=== PATIENT | female | born 1995 | race African-American/Black ===

== ENCOUNTER 2017-01-23 19:12 | Emergency (ER) | payer MEDICAID ==
[~2017-01-23] VITALS: Ht 180.3 cm; Wt 86.0 kg
[2017-01-23 22:38] VITALS: BP 132/78
[2017-01-23 22:47] LABS: CLARITY URINE TURBID (CLEAR); COLOR URINE YELLOW (YELLOW); GLUCOSE URINE NEGATIVE (NEGATIVE); KETONES URINE NEGATIVE (NEGATIVE); LEUKOCYTE ESTERASE URINE 3+ (NEGATIVE); NITRITE URINE NEGATIVE (NEGATIVE); OCCULT BLOOD URINE 2+ (NEGATIVE); PH URINE 6.5 (4.5-8.0); PROTEIN URINE 1+ (NEGATIVE); SPECIFIC GRAVITY URINE 1.007 (1.005-1.030); UROBILINOGEN URINE 0.2 E.U./dL (0.2-1.0)
[2017-01-23 22:49] LABS: BASOPHILS % 0.3 % (0.0-2.0); EOSINOPHILS % 0.8 % (0.0-5.0); HEMATOCRIT. 32.7 % (36.0-48.0); HEMOGLOBIN. 11.2 g/dL (12.0-16.0); LYMPHOCYTES % 32.2 % (20.0-50.0); MEAN CORPUSCULAR HEMOGLOBIN 29.1 pg (28.0-32.0); MEAN CORPUSCULAR HGB CONC 34.2 g/dL (31.0-37.0); MEAN CORPUSCULAR VOLUME 84.9 fL (81.0-99.0); MEAN PLATELET VOLUME 7.2 fl (7.4-10.4); MONOCYTES % 5.8 % (2.0-8.0); NEUTROPHILS % 60.9 % (40.0-76.0); PLATELET 252 x1000/uL (130-400); RED BLOOD CELL COUNT 3.85 mill/uL (4.2-5.4); RED CELL DISTRIBUTION WIDTH 13.1 % (11.6-14.6); WHITE BLOOD COUNT 8.7 x1000/uL (4.5-11.0)
[2017-01-23 22:55] LABS: ANION GAP 13; CALCIUM 8.9 mg/dL (8.5-10.1); CARBON DIOXIDE 25 mEq/L (21-32); CHLORIDE 105 mEq/L (98-107); INDEX HEMOLYSI 1 (1-3); INDEX ICTERIC 1 (1-4); INDEX LIPEMIC 1 (1-3); UREA NITROGEN BLOOD 5 mg/dL (7-21)
[2017-01-23 22:58] LABS: eGFR > 60 mL/min (>60)
[2017-01-23 23:10] LABS: BACTERIA URINE 2+; SQUAMOUS EPITHELIAL CELL URINE 2+ /lpf (RARE/1+)
[2017-01-23 23:11] LABS: WBC URINE TNTC /hpf (0-2)
[2017-01-23 23:14] LABS: B-HCG QUANTITATIVE 8741 mIU/mL (<3)
== END 2017-01-24 00:35 | disposition home or self-care (01) ==
LOC: ER 19:19
DX: O20.0 Threatened abortion (principal); O23.42 Unspecified infection of urinary tract in pregnancy, second trimester; Z3A.18 18 weeks gestation of pregnancy
CPT/HCPCS: 36415; 76805; 80048; 81001; 84702; 85025; 86850; 86900; 99285

== ENCOUNTER 2018-11-12 18:59 | Emergency (ER) | payer MEDICAID ==
[~2018-11-12] VITALS: Ht 182.9 cm; Wt 87.0 kg
[2018-11-12 21:20] LABS: CLARITY URINE CLOUDY (CLEAR); COLOR URINE YELLOW (YELLOW); KETONES URINE TRACE (NEGATIVE); LEUKOCYTE ESTERASE URINE 2+ (NEGATIVE); NITRITE URINE NEGATIVE (NEGATIVE); OCCULT BLOOD URINE NEGATIVE (NEGATIVE); PROTEIN URINE NEGATIVE (NEGATIVE); SPECIFIC GRAVITY URINE 1.021 (1.005-1.030); UROBILINOGEN URINE 0.2 E.U./dL (0.2-1.0)
[2018-11-12] MEDS ORDERED: ACETAMINOPHEN 500MG TABLET PO ONE (22:45)
[2018-11-12] MEDS ORDERED: SODIUM CHLORIDE 0.9% 1,000 ML IV ONE (22:45)
[2018-11-12 23:31] LABS: BASOPHILS % 0.5 % (0.0-2.0); EOSINOPHILS % 0.2 % (0.0-5.0); HEMOGLOBIN. 12.7 g/dL (12.0-16.0); LYMPHOCYTES % 28.5 % (20.0-50.0); MEAN CORPUSCULAR HEMOGLOBIN 28.6 pg (28.0-32.0); MEAN CORPUSCULAR VOLUME 85.7 fL (81.0-99.0); MEAN PLATELET VOLUME 8.1 fl (7.4-10.4); NEUTROPHILS % 62.8 % (40.0-76.0); PLATELET 283 x1000/uL (130-400); RED BLOOD CELL COUNT 4.43 mill/uL (4.2-5.4); RED CELL DISTRIBUTION WIDTH 14.2 % (11.6-14.6)
[2018-11-12 23:38] LABS: CHLORIDE 104 mEq/L (98-107)
[2018-11-12 23:52] LABS: B-HCG QUANTITATIVE 659 mIU/mL (<3)
[2018-11-13 01:21] VITALS: BP 128/80
== END 2018-11-13 01:25 | disposition home or self-care (01) ==
LOC: ER 18:59
DX: O21.0 Mild hyperemesis gravidarum (principal); O23.10 Infections of bladder in pregnancy, unspecified trimester; O26.899 Other specified pregnancy related conditions, unspecified trimester; R42 Dizziness and giddiness; Z3A.00 Weeks of gestation of pregnancy not specified
CPT/HCPCS: 36415; 76801; 76817; 80053; 81003; 81025; 84702; 85025; 96360; 99284; J7030

== ENCOUNTER 2019-01-14 15:16 | Emergency (ER) | payer MEDICAID ==
[~2019-01-14] VITALS: Ht 180.3 cm; Wt 86.0 kg
[2019-01-14] MEDS ORDERED: ACETAMINOPHEN 325MG TABLET PO PRN (17:15)
[2019-01-14 18:31] LABS: BASOPHILS % 0.2 % (0.0-2.0); EOSINOPHILS % 0.3 % (0.0-5.0); HEMATOCRIT. 33.7 % (36.0-48.0); HEMOGLOBIN. 11.6 g/dL (12.0-16.0); LYMPHOCYTES % 20.4 % (20.0-50.0); MEAN CORPUSCULAR HEMOGLOBIN 28.9 pg (28.0-32.0); MEAN CORPUSCULAR VOLUME 83.9 fL (81.0-99.0); MEAN PLATELET VOLUME 7.8 fl (7.4-10.4); MONOCYTES % 4.1 % (2.0-8.0); PLATELET 262 x1000/uL (130-400); RED BLOOD CELL COUNT 4.02 mill/uL (4.2-5.4); RED CELL DISTRIBUTION WIDTH 13.6 % (11.6-14.6)
[2019-01-14 18:33] LABS: CHLORIDE 107 mEq/L (98-107)
[2019-01-14 18:57] LABS: B-HCG QUANTITATIVE 73578 mIU/mL (<3)
[2019-01-14 20:46] LABS: CLARITY URINE TURBID (CLEAR); COLOR URINE YELLOW (YELLOW); KETONES URINE NEGATIVE (NEGATIVE); LEUKOCYTE ESTERASE URINE 3+ (NEGATIVE); NITRITE URINE NEGATIVE (NEGATIVE); OCCULT BLOOD URINE NEGATIVE (NEGATIVE); PROTEIN URINE NEGATIVE (NEGATIVE); SPECIFIC GRAVITY URINE 1.015 (1.005-1.030); UROBILINOGEN URINE 0.2 E.U./dL (0.2-1.0)
[2019-01-14] MEDS ORDERED: CEPHALEXIN 250MG CAPSULE PO ONE (21:30)
[2019-01-14 22:00] VITALS: BP 125/74
== END 2019-01-14 22:00 | disposition home or self-care (01) ==
LOC: ER 15:16
DX: O23.31 Infections of other parts of urinary tract in pregnancy, first trimester (principal); Z3A.12 12 weeks gestation of pregnancy
CPT/HCPCS: 36415; 76801; 80053; 81003; 81025; 84702; 85025; 86850; 86900; 86901; 87077; 87086; 99284; Z7610

== ENCOUNTER 2019-02-27 21:41 | Emergency (ER) | payer MEDICAID ==
[~2019-02-27] VITALS: Ht 180.3 cm; Wt 88.0 kg
[2019-02-27 22:29] LABS: CLARITY URINE TURBID (CLEAR); COLOR URINE YELLOW (YELLOW); KETONES URINE NEGATIVE (NEGATIVE); LEUKOCYTE ESTERASE URINE 3+ (NEGATIVE); NITRITE URINE NEGATIVE (NEGATIVE); OCCULT BLOOD URINE NEGATIVE (NEGATIVE); PROTEIN URINE NEGATIVE (NEGATIVE); SPECIFIC GRAVITY URINE 1.016 (1.005-1.030); UROBILINOGEN URINE 0.2 E.U./dL (0.2-1.0)
[2019-02-27 22:55] LABS: BASOPHILS % 0.1 % (0.0-2.0); EOSINOPHILS % 0.5 % (0.0-5.0); HEMOGLOBIN. 10.6 g/dL (12.0-16.0); LYMPHOCYTES % 29.2 % (20.0-50.0); MEAN CORPUSCULAR HEMOGLOBIN 29.7 pg (28.0-32.0); MEAN PLATELET VOLUME 7.8 fl (7.4-10.4); MONOCYTES % 6.3 % (2.0-8.0); NEUTROPHILS % 63.9 % (40.0-76.0); PLATELET 250 x1000/uL (130-400); RED BLOOD CELL COUNT 3.58 mill/uL (4.2-5.4); RED CELL DISTRIBUTION WIDTH 14.3 % (11.6-14.6)
[2019-02-27 22:57] LABS: CHLORIDE 110 mEq/L (98-107)
[2019-02-27 23:21] LABS: B-HCG QUANTITATIVE 6215 mIU/mL (<3)
[2019-02-28 00:51] VITALS: BP 104/62
== END 2019-02-28 01:12 | disposition home or self-care (01) ==
LOC: ER 21:41
DX: O23.42 Unspecified infection of urinary tract in pregnancy, second trimester (principal); Z3A.19 19 weeks gestation of pregnancy
CPT/HCPCS: 36415; 76805; 81025; 84702; 87077; 99284

== ENCOUNTER 2019-05-13 11:07 | Observation (INO) | payer MEDICAID ==
[~2019-05-13] VITALS: Ht 182.9 cm; Wt 99.8 kg
[2019-05-13] MEDS ORDERED: PREN1TAB23 PO (11:51)
[2019-05-13] MEDS ORDERED: FERR325T6 PO (11:51)
[2019-05-13 12:33] LABS: HEMATOCRIT 29.4 % (36.0-48.0); HEMOGLOBIN 10.2 g/dL (12.0-16.0); MEAN CORPUSCULAR HEMOGLOBIN 29.5 pg (28.0-32.0); MEAN CORPUSCULAR VOLUME 85.2 fL (81.0-99.0); PLATELET 231 x1000/uL (130-400); RED BLOOD CELL COUNT 3.45 mill/uL (4.2-5.4); RED CELL DISTRIBUTION WIDTH 12.8 % (11.6-14.6)
[2019-05-13 12:35] LABS: CLARITY URINE CLOUDY (CLEAR); COLOR URINE YELLOW (YELLOW); KETONES URINE NEGATIVE (NEGATIVE); LEUKOCYTE ESTERASE URINE 3+ (NEGATIVE); NITRITE URINE NEGATIVE (NEGATIVE); OCCULT BLOOD URINE 2+ (NEGATIVE); PH URINE 5.5 (4.5-8.0); PROTEIN URINE TRACE (NEGATIVE); SPECIFIC GRAVITY URINE 1.014 (1.005-1.030); UROBILINOGEN URINE 0.2 E.U./dL (0.2-1.0)
== END 2019-05-13 14:40 | disposition home or self-care (01) ==
LOC: 8 EST LDRP 11:07
PROVIDERS: ADMIT Obstetrics & Gynecology; ATTEND Obstetrics & Gynecology
DX: O26.853 Spotting complicating pregnancy, third trimester (principal); Z3A.29 29 weeks gestation of pregnancy
CPT/HCPCS: 36415; 76805; 81003; 85027; 87086; 99281; G0378; 87077; 87186

== ENCOUNTER 2020-09-19 13:50 | Emergency (ER) | payer MEDICAID ==
[~2020-09-19] VITALS: Ht 180.3 cm; Wt 95.0 kg
[~2020-09-19 13:50] MED LIST: FERR325T6 PO; PREN1TAB23 PO
[2020-09-19 15:28] LABS: BASOPHILS % 0.2 % (0.0-2.0); EOSINOPHILS % 0.1 % (0.0-5.0); HEMATOCRIT. 36.4 % (36.0-48.0); HEMOGLOBIN. 12.4 g/dL (12.0-16.0); LYMPHOCYTES % 24.9 % (20.0-50.0); MEAN CORPUSCULAR HEMOGLOBIN 27.9 pg (28.0-32.0); MEAN CORPUSCULAR VOLUME 81.8 fL (81.0-99.0); MEAN PLATELET VOLUME 7.8 fl (7.4-10.4); MONOCYTES % 8.3 % (2.0-8.0); NEUTROPHILS % 66.5 % (40.0-76.0); PLATELET 190 x1000/uL (130-400); RED BLOOD CELL COUNT 4.45 mill/uL (4.2-5.4); RED CELL DISTRIBUTION WIDTH 13.6 % (11.6-14.6)
[2020-09-19 15:33] LABS: CHLORIDE 105 mEq/L (98-107)
[2020-09-19] MEDS ORDERED: ACETAMINOPHEN 325MG TABLET PO ONE (16:15)
[2020-09-19] MEDS ORDERED: SODIUM CHLORIDE 0.9% 500 ML IV ONE (16:15)
[2020-09-19] MEDS ORDERED: IBUPROFEN 600MG TABLET PO ONE (16:15)
[2020-09-19 16:22] LABS: HCG SCREEN NEGATIVE
[2020-09-19 17:00] VITALS: BP 120/78
== END 2020-09-19 17:00 | disposition left against medical advice (07) ==
LOC: ER 13:50
DX: J18.9 Pneumonia, unspecified organism (principal); R94.31 Abnormal electrocardiogram [ECG] [EKG]
CPT/HCPCS: 36415; 71045; 80048; 84484; 84703; 85025; 93005; 99285; J7040

== ENCOUNTER 2021-11-27 14:43 | Emergency (ER) | payer MEDICAID, OTHER ==
[~2021-11-27] VITALS: Ht 180.3 cm; Wt 99.8 kg
[2021-11-27] MEDS ORDERED: ACETAMINOPHEN 500MG TABLET PO ONE (15:30)
[2021-11-27 16:17] VITALS: BP 115/81
== END 2021-11-27 16:22 | disposition home or self-care (01) ==
LOC: ER 14:43
DX: O26.891 Other specified pregnancy related conditions, first trimester (principal); R50.9 Fever, unspecified; Z20.822 Contact with and (suspected) exposure to COVID-19; J02.9 Acute pharyngitis, unspecified; R05.8 Other specified cough; R06.02 Shortness of breath; Z3A.08 8 weeks gestation of pregnancy
CPT/HCPCS: 87426; 99283

== ENCOUNTER 2024-11-23 08:10 | Emergency (ER) | payer OTHER ==
[~2024-11-23] VITALS: Ht 180.3 cm; Wt 99.8 kg
[2024-11-23 08:17] VITALS: O2SAT 99
[2024-11-23 08:45] LABS: BASOPHILS % 0.2 % (0.0-2.0); EOSINOPHILS % 0.6 % (0.0-5.0); HEMATOCRIT. 36.4 % (36.0-48.0); LYMPHOCYTES % 30.3 % (20.0-50.0); MEAN CORPUSCULAR HEMOGLOBIN 26.8 pg (28.0-32.0); MEAN CORPUSCULAR VOLUME 81.4 fL (81.0-99.0); MEAN PLATELET VOLUME 7.3 fl (7.4-10.4); MONOCYTES % 6.8 % (2.0-8.0); NEUTROPHILS % 62.1 % (40.0-76.0); PLATELET 335 x1000/uL (130-400); RED BLOOD CELL COUNT 4.48 mill/uL (4.2-5.4); RED CELL DISTRIBUTION WIDTH 14.7 % (11.6-14.6); WHITE BLOOD COUNT 9.1 x1000/uL (4.5-11.0)
[2024-11-23 08:47] LABS: CHLORIDE 106 mEq/L (98-107); POTASSIUM 4.2 mEq/L (3.5-5.1); SODIUM 137 mEq/L (136-145)
[2024-11-23 08:48] LABS: CARBON DIOXIDE 24 mEq/L (21-32)
[2024-11-23 08:49] LABS: CALCIUM 10.1 mg/dL (8.7-10.4)
[2024-11-23 08:53] LABS: CREATININE 0.8 mg/dL (0.6-1.0); GLUCOSE 101 mg/dL (70-105); UREA NITROGEN BLOOD 7 mg/dL (9-23)
[2024-11-23 10:03] LABS: HCG SCREEN NEGATIVE
[2024-11-23] MEDS: MAGNESIUM/ALUMINUM HYDROXIDE/SIMETHICONE 30ML UDC PO STA (10:04)
[2024-11-23] MEDS: ACETAMINOPHEN 325MG TABLET PO ONE (10:04)
[2024-11-23] MEDS: ONDANSETRON 4MG ODT PO STA (10:04)
[2024-11-23] MEDS: FAMOTIDINE 20MG TABLET PO ONE (10:05)
[2024-11-23 10:06] LABS: ALANINE AMINOTRANSFERASE 9 IU/L (10-49); ALBUMIN 4.5 g/dL (3.2-4.8); ASPARTATE AMINOTRANSFERASE 16 IU/L (<34)
[2024-11-23 10:07] LABS: BILIRUBIN TOTAL 0.2 mg/dL (0.1-1.0)
[2024-11-23 10:28] LABS: BILIRUBIN DIRECT < 0.1 mg/dL (<=3.0)
[2024-11-23 11:55] LABS: CLARITY URINE CLOUDY (CLEAR); COLOR URINE YELLOW (YELLOW); GLUCOSE URINE NEGATIVE (NEGATIVE); KETONES URINE NEGATIVE (NEGATIVE); LEUKOCYTE ESTERASE URINE 2+ (NEGATIVE); NITRITE URINE NEGATIVE (NEGATIVE); OCCULT BLOOD URINE NEGATIVE (NEGATIVE); PH URINE 5.5 (4.5-8.0); PROTEIN URINE NEGATIVE (NEGATIVE); UROBILINOGEN URINE 0.2 E.U./dL (0.2-1.0)
[2024-11-23 12:35] LABS: BACTERIA URINE 3+; RBC URINE 0-2 /hpf (0-2); SQUAMOUS EPITHELIAL CELL URINE 3+ /lpf (RARE/1+); YEAST URINE NONE SEEN
[2024-11-23] MEDS ORDERED: CEFP100S5 MT (14:21)
[2024-11-23] MEDS ORDERED: FAMO-135 MT (14:21)
[2024-11-23 14:30] VITALS: BP 133/80; PULSE 99; RESP 16; TEMP 36.8; O2SAT 99
== END 2024-11-23 14:37 | disposition home or self-care (01) ==
LOC: ER 08:10
DX: K80.20 Calculus of gallbladder without cholecystitis without obstruction (principal); N39.0 Urinary tract infection, site not specified; R10.30 Lower abdominal pain, unspecified
CPT/HCPCS: 99284; 76705; 80076; 80048; 81003; 84703; 83690; 85025; 87086; 36415; Q0162